=== PATIENT | female | born 1935 | race African-American/Black ===

== ENCOUNTER 2018-10-06 10:56 | Emergency (ER) | payer MEDICARE, OTHER ==
[2018-10-06 11:02] VITALS: BP 173/67; PULSE 85; RESP 18; TEMP 98.2
[2018-10-06] MEDS ORDERED: ACETAMINOPHEN TAB 500 MG TAB PO STA (11:34)
--- NOTE | 2018-10-06 11:35 | ED ---
General Adult HPI - General Source: patient, RN notes reviewed Mode of arrival: ambulatory Limitations: no limitations <Boston Gaitan - Last Filed: 10/06/18 13:48> <Bismark Sánchez - Last Filed: 10/06/18 16:31> - General Chief complaint: Fall Stated complaint: fall/rib pain Time Seen by Provider: 10/06/18 11:06 - History of Present Illness Initial comments: 83-year-old female presents for left-sided rib pain 2 days. Patient states that 2 days ago she was lying in the bathtub. States he reached over the edge and felt a crack on the place for her ribs touched the edge of the bathtub. Patient did not fall. Patient states that since that time she has had left- sided lower rib pain. Denies any abdominal pain. Denies any chest pain or shortness of breath. Admits that she takes a deep breath this area hurts.Patient has no other complaints at this time including shortness of breath, chest pain, abdominal pain, nausea or vomiting, headache, or visual changes. (Boston Gaitan) - Related Data Home Medications Medication Instructions Recorded Confirmed Alendronate Sodium [Fosamax] 70 mg PO MO 10/06/18 10/06/18 Simvastatin [Zocor] 20 mg PO HS 10/06/18 10/06/18 amLODIPine [Norvasc] 5 mg PO HS 10/06/18 10/06/18 Allergies Allergy/AdvReac Type Severity Reaction Status Date / Time No Known Allergies Allergy Verified 10/06/18 11:39 Review of Systems ROS Other: All systems not noted in ROS Statement are negative. <Boston Gaitan - Last Filed: 10/06/18 13:48> ROS Other: All systems not noted in ROS Statement are negative. <Bismark Sánchez - Last Filed: 10/06/18 16:31> ROS Statement: Those systems with pertinent positive or pertinent negative responses have been documented in the HPI. Past Medical History Past Medical History: Hyperlipidemia, Hypertension, Osteoarthritis (OA) History of Any Multi-Drug Resistant Organisms: None Reported Past Surgical History: Hysterectomy Past Psychological History: No Psychological Hx Reported Smoking Status: Never smoker Past Alcohol Use History: None Reported Past Drug Use History: None Reported <Boston Gaitan - Last Filed: 10/06/18 13:48> General Exam Limitations: no limitations General appearance: alert, in no apparent distress Head exam: Present: atraumatic, normocephalic, normal inspection Eye exam: Present: normal appearance, PERRL, EOMI. Absent: scleral icterus, conjunctival injection, periorbital swelling ENT exam: Present: normal exam, mucous membranes moist Neck exam: Present: normal inspection, full ROM. Absent: tenderness, meningism us, lymphadenopathy Respiratory exam: Present: normal lung sounds bilaterally, chest wall tenderness (Patient has left lower anterior rib tenderness around rib 9). Absent: re spiratory distress, wheezes, rales, rhonchi, stridor, other (No significant contusion or ecchymosis present on the left ribs.) Cardiovascular Exam: Present: regular rate, normal rhythm, normal heart sounds. Absent: systolic murmur, diastolic murmur, rubs, gallop, clicks GI/Abdominal exam: Present: soft, normal bowel sounds. Absent: distended, ten derness (No tenderness of the abdomen.), guarding, rebound, rigid Neurological exam: Present: alert Psychiatric exam: Present: normal affect, normal mood <Boston Gaitan - Last Filed: 10/06/18 13:48> Course <Bismark Sánchez - Last Filed: 10/06/18 16:31> Vital Signs 10/06/18 10:59 Temperature 98.2 F Pulse Rate 85 Respiratory 18 Rate Blood Pressure 173/67 O2 Sat by Pulse 93 L Oximetry - Reevaluation(s) Reevaluation #1: 10/06/18 16:30 PA supervision: I personally did evaluate this case including review of the imaging. I do agree with the assessment and plan. (Bismark Sánchez) Medical Decision Making <Boston Gaitan - Last Filed: 10/06/18 13:48> - Medical Decision Making 83-year-old female presents to the emergency department for a chief complaint of left-sided anterior lower rib pain. Patient reached over the edge of the bathtub and felt a pop. On exam patient is a tenderness in this area without ecchymosis or contusion. No skin tenting. She denies any shortness of breath. Vitals are stable.X-ray of the chest and left rib series shows a tortuous ectatic thoracic aorta without displaced left rib fracture. Patient likely has contusion of the left ribs. Discussed taking 10 deep breaths per hour. Discussed follow-up with primary care and Motrin, for pain. Discussed returning here if she has any worsening symptoms. Case was discussed in depth with Dr. Sánchez (Boston Gaitan) Disposition Is patient prescribed a controlled substance at d/c from ED?: No Time of Disposition: 13:49 <Boston Gaitan - Last Filed: 10/06/18 13:48> <Bismark Sánchez - Last Filed: 10/06/18 16:31> Clinical Impression: Contusion of rib on left side Disposition: HOME SELF-CARE Condition: Good Instructions (If sedation given, give patient instructions): Rib Contusion (ED) Additional Instructions: Take 10 deep breaths every hour. Please take Motrin and Tylenol for pain. Please follow-up with primary care in 1-2 days. Please return to the emergency department if you have any worsening symptoms. Referrals: Aron Beasley MD [Primary Care Provider] - 1-2 days
--- NOTE | 2018-10-06 13:16 | XR ---
EXAMINATION TYPE: XR chest 2V, Left rib series, 4 views DATE OF EXAM: 10/06/2018 COMPARISON: None HISTORY: 83-year-old female pain after fall 2 days ago FINDINGS: Chest: Heart normal size. Tortuosity/ectasia of the thoracic aorta. Strandy atelectasis mid and lower lungs. No consolidation, pneumothorax, or pleural effusion is seen. Left RIBS: No displaced left rib fracture is seen. IMPRESSION: Tortuous/ectatic thoracic aorta. Strandy bibasilar atelectasis. No displaced left rib fracture seen.
== END 2018-10-06 14:09 | disposition home or self-care (01) ==
LOC: EC 10:56
DX: S20.212A Contusion of left front wall of thorax, initial encounter (principal); E78.5 Hyperlipidemia, unspecified; I10 Essential (primary) hypertension; Z79.899 Other long term (current) drug therapy; W01.198A Fall on same level from slipping, tripping and stumbling with subsequent striking against other object, initial encounter
CPT/HCPCS: 71046; 99283